=== PATIENT | male | born 1985 | race Two or more races ===

== ENCOUNTER 2017-10-03 20:46 | Emergency (ER) | payer MEDICAID ==
[~2017-10-03] VITALS: Ht 185.4 cm; Wt 74.8 kg
[2017-10-03] MEDS ORDERED: Naloxone 1mg/ml 2ml ONE (21:25)
[2017-10-03] MEDS ORDERED: Naloxone 1mg/ml 2ml IVP ONE ×2 (21:30→22:00)
[2017-10-03 21:35] LABS: BASOPHILS % (AUTO) 1.2 % (0.0-2.0); EOSINOPHILS % (AUTO) 1.4 % (0.0-3.0); HEMATOCRIT 44.7 % (42.0-52.0); HEMOGLOBIN 14.7 G/DL (14.2-18.0); LYMPHOCYTES % (AUTO) 21.2 % (20.0-45.0); MEAN CORPUSCULAR VOLUME 91 FL (80-99); MONOCYTES % (AUTO) 8.9 % (1.0-10.0); NEUTROPHILS % (AUTO) 67.3 % (45.0-75.0); PLATELET COUNT 276 K/UL (150-450); RED BLOOD COUNT 4.93 M/UL (4.70-6.10); RED CELL DISTRIBUTION WIDTH 12.6 % (11.6-14.8); WHITE BLOOD COUNT 11.4 K/UL (4.8-10.8)
[2017-10-03 21:44] LABS: ANION GAP 8 mmol/L (5-15); BLOOD UREA NITROGEN 20 mg/dL (7-18); CALCIUM 9.5 MG/DL (8.5-10.1); CARBON DIOXIDE 26 MMOL/L (21-32); CHLORIDE 110 MMOL/L (98-107); CREATININE 1.5 MG/DL (0.55-1.30); POTASSIUM 4.5 MMOL/L (3.5-5.1); SODIUM 144 MMOL/L (136-145)
[2017-10-03 21:53] LABS: APPEARANCE,URINE CLEAR; BILIRUBIN, URINE NEGATIVE (NEGATIVE); GLUCOSE, URINE (UA) NEGATIVE (NEGATIVE); KETONES,URINE 1+ (NEGATIVE); LEUKOCYTE ESTERASE ,URINE 1+ (NEGATIVE); NITRITE,URINE NEGATIVE (NEGATIVE); PH,URINE 5 (4.5-8.0); PROTEIN,URINE 1+ (NEGATIVE); UROBILINOGEN,URINE 4 MG/DL (0.0-1.0)
[2017-10-03 21:54] LABS: COLOR,URINE YELLOW
[2017-10-03 21:57] LABS: ALANINE AMINOTRANSFERASE 32 U/L (12-78); ALBUMIN 4.1 G/DL (3.4-5.0); ALBUMIN/GLOBULIN RATIO 1.1 (1.0-2.7); ALKALINE PHOSPHATASE 63 U/L (46-116); ASPARTATE AMINO TRANSFERASE 17 U/L (15-37); BILIRUBIN,TOTAL 0.2 MG/DL (0.2-1.0); CKMB 3.1 NG/ML (0.0-3.6); CREATINE KINASE 174 U/L (26-308)
--- NOTE | 2017-10-03 21:59 | Emergency Room Report ---
History of Present Illness General Chief Complaint: Behavioral Complaint Source: Patient Present Illness HPI Patient is a 32-year-old male who presented after increased altered level consciousness. Patient was brought in by EMS patient was noted to be acting erratically. The patient had prior history of HIV. He was noted to be awake and alert by paramedics and subsequently became less responsive. He was noted to have adequate blood sugar. He had had not been vomiting. History is limited by patient's mental status. Allergies: Coded Allergies: No Known Allergies (Unverified , 10/03/17) Patient History Reviewed Nursing Documentation: PMH: Agreed; PSxH: Agreed Nursing Documentation-PM Past Medical History: No History, Except For Review of Systems All Other Systems: negative except mentioned in HPI Physical Exam Vital Signs Date Time Temp Pulse Resp B/P (MAP) Pulse Ox O2 Delivery O2 Flow Rate FiO2 10/03/17 20:39 116 16 140/90 99 Room Air Sp02 EP Interpretation: reviewed, normal General Appearance: alert/responsive, no apparent distress, GCS 15, non-toxic Head: atraumatic Eyes: normal eye exam, lids + conjunctiva normal, other - pinpint ENT: hearing intact, no angioedema Neck: supple/symm/no masses, no meningismus Respiratory: effort normal, no wheezing, chest symmetrical Cardiovascular: regular rate, rhythm, no edema Cardiovascular #2: 2+ carotid (R), 2+ carotid (L), 2+ dorsalis pedis (R), 2+ dorsalis pedis (L) Gastrointestinal: non-tender, no mass, non-distended, no rebound/guarding, normal bowel sounds Musculoskeletal: gait & station normal, strength & tone normal, normal ROM, non -tender Neurologic: normal inspection, CN II-XII intact, oriented x3, sensory intact, normal speech Skin: no rash, well hydrated Lymphatic: normal inspection Medical Decision Making EKG Diagnostic Results Rate: normal - 80 Rhythm: NSR ST Segments: no acute changes Last Vital Signs Date Time Temp Pulse Resp B/P (MAP) Pulse Ox O2 Delivery O2 Flow Rate FiO2 10/03/17 20:39 116 16 140/90 99 Room Air Jay Carlos MD Oct 03, 2017 21:59
[2017-10-03 22:00] VITALS: BP 133/97
[2017-10-03 23:01] VITALS: BP 130/90
[2017-10-04 00:16] VITALS: BP 122/80
[2017-10-04 00:19] VITALS: BP 122/80
--- NOTE | 2017-10-04 11:10 | Diagnostic Imaging Report ---
Indication: Shortness of breath Technique: One view of the chest Comparison: none Findings: Lungs and pleural spaces are clear. Heart size is normal Impression: No acute process This agrees with the preliminary interpretation provided by the emergency room physician
--- NOTE | 2017-10-04 13:32 | Cardiology Report ---
APPROVED REPORT EKG Measurement Heart [id number] Normal sinus rhythm Septal infarct, age undetermined Possible Lateral infarct, age undetermined Abnormal ECG
== END 2017-10-04 00:20 | disposition home or self-care (01) ==
LOC: EDBD 20:46 → EMR 22:32
DX: R41.82 Altered mental status, unspecified (principal); B20 Human immunodeficiency virus [HIV] disease; R06.02 Shortness of breath
CPT/HCPCS: 36415; 71045; 80053; 80307; 80329; 81003; 82550; 82553; 83605; 84484; 85025; 87040; 93005; 96361; 96374; 96375; 99284; J2310

== ENCOUNTER 2019-03-02 11:52 | Emergency (ER) | payer MEDICAID, OTHER ==
[~2019-03-02] VITALS: Ht 185.4 cm; Wt 72.6 kg
--- NOTE | 2019-03-02 12:30 | NUR ---
ED Nurse Note: Patient walked into ED from home c/o diarrhea since 02/24/19. patient c/o periumbilical stomachache intermittently. denies any pain at this time. patient reports hx of HIV.
[2019-03-02 13:27] VITALS: BP 121/72
[2019-03-02 13:28] LABS: EOSINOPHILS % (AUTO) 3.3 % (0.0-3.0); HEMATOCRIT 48.1 % (42.0-52.0); HEMOGLOBIN 15.9 G/DL (14.2-18.0); LYMPHOCYTES % (AUTO) 39.8 % (20.0-45.0); MEAN CORPUSCULAR VOLUME 90 FL (80-99); MONOCYTES % (AUTO) 14.6 % (1.0-10.0); NEUTROPHILS % (AUTO) 41.4 % (45.0-75.0); PLATELET COUNT 320 K/UL (150-450); RED BLOOD COUNT 5.37 M/UL (4.70-6.10); RED CELL DISTRIBUTION WIDTH 12.1 % (11.6-14.8); WHITE BLOOD COUNT 7.9 K/UL (4.8-10.8)
[2019-03-02 13:31] LABS: APPEARANCE,URINE CLEAR; BILIRUBIN, URINE NEGATIVE (NEGATIVE); GLUCOSE, URINE (UA) NEGATIVE (NEGATIVE); KETONES,URINE NEGATIVE (NEGATIVE); LEUKOCYTE ESTERASE ,URINE NEGATIVE (NEGATIVE); NITRITE,URINE NEGATIVE (NEGATIVE); PH,URINE 5 (4.5-8.0); PROTEIN,URINE NEGATIVE (NEGATIVE); UROBILINOGEN,URINE NORMAL MG/DL (0.0-1.0)
[2019-03-02 13:40] LABS: COLOR,URINE YELLOW
[2019-03-02 13:41] LABS: ANION GAP 5 mmol/L (5-15); BLOOD UREA NITROGEN 18 mg/dL (7-18); CALCIUM 8.6 MG/DL (8.5-10.1); CARBON DIOXIDE 32 MMOL/L (21-32); CHLORIDE 101 MMOL/L (98-107); CREATININE 1.1 MG/DL (0.55-1.30); POTASSIUM 4.5 MMOL/L (3.5-5.1); SODIUM 138 MMOL/L (136-145)
[2019-03-02 13:45] LABS: ALANINE AMINOTRANSFERASE 31 U/L (12-78); ALBUMIN 3.5 G/DL (3.4-5.0); ALBUMIN/GLOBULIN RATIO 0.8 (1.0-2.7); ALKALINE PHOSPHATASE 56 U/L (46-116); ASPARTATE AMINO TRANSFERASE 18 U/L (15-37); BILIRUBIN,TOTAL 0.2 MG/DL (0.2-1.0)
[2019-03-02] MEDS ORDERED: Dicyclomine HCl 10mg/5ml oral soln ORAL ONE (13:45)
[2019-03-02] MEDS ORDERED: Lidocaine 2% Visc 15ml soln ORAL ONE (13:45)
[2019-03-02] MEDS ORDERED: Mylanta II UD 30ml ORAL ONE (13:45)
[2019-03-02] MEDS ORDERED: RANITIDINE HCL150 MG ORAL (14:31)
[2019-03-02] MEDS ORDERED: DICYCLOMINE HCL10 MG ORAL (14:31)
[2019-03-02 14:36] VITALS: BP 124/78
[2019-03-02 14:37] VITALS: BP 124/78
--- NOTE | 2019-03-02 14:37 | NUR ---
ER DISCHARGE NOTE: Patient is cleared to be discharged per ERMD DR RICARDO , pt is aox4, on room air, with stable vital signs. pt was given dc and prescription instructions, pt was able to verbalize understanding, pt id band and iv site removed without complications. pt is able to ambulate with steady gait. pt took all belongings.
--- NOTE | 2019-03-02 15:22 | Emergency Room Report ---
History of Present Illness General Chief Complaint: Diarrhea Source: Patient Present Illness HPI 33-year-old male presents ED for evaluation. Presents with diarrhea and abdominal pain x5 days. Pain is cramping, 6 out of 10, nonradiating. Feels multiple episodes of watery loose stools. Denies vomiting. Denies fevers or chills. Denies recent travel or recent antibiotic use. No other aggravating relieving factors. Denies any other associated symptoms Allergies: Coded Allergies: No Known Allergies (Unverified , 10/03/17) Patient History Past Medical History: HIV Past Surgical History: none Pertinent Family History: none Social History: Denies: smoking, alcohol use, drug use Immunizations: UTD Reviewed Nursing Documentation: PMH: Agreed; PSxH: Agreed Nursing Documentation-PMH Past Medical History: No Stated History Review of Systems All Other Systems: negative except mentioned in HPI Physical Exam Vital Signs Date Time Temp Pulse Resp B/P (MAP) Pulse Ox O2 Delivery O2 Flow Rate FiO2 03/02/19 11:54 98.1 118 20 127/78 (94) 96 Room Air Sp02 EP Interpretation: reviewed, normal General Appearance: no apparent distress, alert, GCS 15, non-toxic Head: normocephalic, atraumatic Eyes: bilateral eye normal inspection, bilateral eye PERRL ENT: hearing grossly normal, normal pharynx, no angioedema, normal voice Neck: full range of motion, supple/symm/no masses Respiratory: chest non-tender, lungs clear, normal breath sounds, speaking full sentences Cardiovascular #1: regular rate, rhythm, no edema Cardiovascular #2: 2+ carotid (R), 2+ carotid (L), 2+ radial (R), 2+ radial (L) , 2+ dorsalis pedis (R), 2+ dorsalis pedis (L) Gastrointestinal: normal bowel sounds, non tender, soft, non-distended, no guarding, no rebound Rectal: deferred Genitourinary: normal inspection, no CVA tenderness Musculoskeletal: back normal, normal range of motion, gait/station normal, non- tender Neurologic: alert, motor strength/tone normal, oriented x3, sensory intact, responsive, speech normal Psychiatric: judgement/insight normal, memory normal, mood/affect normal, no suicidal/homicidal ideation Reflexes: 3+ bicep (R), 3+ bicep (L), 3+ tricep (R), 3+ tricep (L), 3+ knee (R) , 3+ knee (L) Lymphatic: no adenopathy Medical Decision Making Diagnostic Impression: Primary Impression: Gastroenteritis ER Course Hospital Course 33-year-old M presents to ED with cramping abdominal pain with diarrhea differential diagnosis: gastritis, SBO, cholecystits, gastroenteritis Clinical course Patient placed on stretcher. On pvc monitor. After initial history and physical I ordered labs, IV fluids, GI cocktail and Zantac Labs - no leukocytosis, electrolytes ok, LFTs normal On reassessment patient feels better. Discussed findings with patient. Course is viral and self-limited. Safe for discharge for close outpatient follow-up. I will provide referrals I feel this is a highly complex case requiring extensive working including EKG/ Rhythm strip, Xray/CT/US, Blood/urine lab work, repeat exams while in ED, and administration of strong opiates/narcotics for pain control, admission to hospital or close patient follow up. Diagnosis - gastroenteritis Stable and discharged to home with prescriptions for Zantac,bentyl. Followup with PMD. Return to ED if symptoms recur or worsen Labs Test 03/02/19 13:13 White Blood Count 7.9 K/UL (4.8-10.8) Red Blood Count 5.37 M/UL (4.70-6.10) Hemoglobin 15.9 G/DL (14.2-18.0) Hematocrit 48.1 % (42.0-52.0) Mean Corpuscular Volume 90 FL (80-99) Mean Corpuscular Hemoglobin 29.6 PG (27.0-31.0) Mean Corpuscular Hemoglobin Concent 33.1 G/DL (32.0-36.0) Red Cell Distribution Width 12.1 % (11.6-14.8) Platelet Count 320 K/UL (150-450) Mean Platelet Volume 5.4 FL (6.5-10.1) Neutrophils (%) (Auto) 41.4 % (45.0-75.0) Lymphocytes (%) (Auto) 39.8 % (20.0-45.0) Monocytes (%) (Auto) 14.6 % (1.0-10.0) Eosinophils (%) (Auto) 3.3 % (0.0-3.0) Basophils (%) (Auto) 1.0 % (0.0-2.0) Urine Color Yellow Urine Appearance Clear Urine pH 5 (4.5-8.0) Urine Specific [place] 1.020 (1.005-1.035) Urine Protein Negative (NEGATIVE) Urine Glucose (UA) Negative (NEGATIVE) Urine Ketones Negative (NEGATIVE) Urine Blood Negative (NEGATIVE) Urine Nitrite Negative (NEGATIVE) Urine Bilirubin Negative (NEGATIVE) Urine Urobilinogen Normal MG/DL (0.0-1.0) Urine Leukocyte Esterase Negative (NEGATIVE) Sodium Level 138 MMOL/L (136-145) Potassium Level 4.5 MMOL/L (3.5-5.1) Chloride Level 101 MMOL/L (98-107) Carbon Dioxide Level 32 MMOL/L (21-32) Anion Gap 5 mmol/L (5-15) Blood Urea Nitrogen 18 mg/dL (7-18) Creatinine 1.1 MG/DL (0.55-1.30) Estimat Glomerular Filtration Rate > 60 mL/min (>60) Glucose Level 105 MG/DL (74-106) Calcium Level 8.6 MG/DL (8.5-10.1) Total Bilirubin 0.2 MG/DL (0.2-1.0) Aspartate Amino Transf (AST/SGOT) 18 U/L (15-37) Alanine Aminotransferase (ALT/SGPT) 31 U/L (12-78) Alkaline Phosphatase 56 U/L (46-116) Total Protein 7.8 G/DL (6.4-8.2) Albumin 3.5 G/DL (3.4-5.0) Globulin 4.3 g/dL Albumin/Globulin Ratio 0.8 (1.0-2.7) Lipase 83 U/L (73-393) Last Vital Signs Date Time Temp Pulse Resp B/P (MAP) Pulse Ox O2 Delivery O2 Flow Rate FiO2 03/02/19 14:37 98.1 97 17 124/78 99 Room Air Status: improved Disposition: HOME, SELF-CARE Condition: Stable Scripts Dicyclomine Hcl* (DICYCLOMINE HCL*) 10 Mg Capsule 10 MG ORAL QID, #20 CAP Prov: Benoit Fields MD 03/02/19 Ranitidine Hcl* (ZANTAC*) 150 Mg Tablet 150 MG ORAL TWICE A DAY, #30 TAB Prov: Benoit Fields MD 03/02/19 Referrals: [facility] Patient Instructions: Viral Gastroenteritis, Adult Benoit Fields MD Mar 02, 2019 15:22
== END 2019-03-02 14:38 | disposition home or self-care (01) ==
LOC: EMR 14:23
DX: K52.9 Noninfective gastroenteritis and colitis, unspecified (principal); B20 Human immunodeficiency virus [HIV] disease
CPT/HCPCS: 36415; 80053; 81003; 83690; 85025; 96361; 96374; J7030; S0028; Z7502; 99284

== ENCOUNTER 2019-10-22 14:51 | Emergency (ER) | payer OTHER ==
[~2019-10-22] VITALS: Ht 185.4 cm; Wt 74.8 kg
[~2019-10-22 14:51] MED LIST: DICYCLOMINE HCL10 MG ORAL; RANITIDINE HCL150 MG ORAL
--- NOTE | 2019-10-22 15:00 | NUR ---
ED Nurse Note: Patient walked into ED c/o small open sore on left palm of hand, approx 2 cm wide. Patient states it looked like a callous and he popped it with a pin. Now pain 5/10, tender, has hurt x1 week and radiates down left forearm. Patient AxO x 4, sitting in chair, calm, no facial grimacing.
[2019-10-22 15:05] VITALS: BP 122/86
--- NOTE | 2019-10-22 15:10 | NUR ---
ED Nurse Note: ERPA at bedside
[2019-10-22] MEDS ORDERED: Tetanus/Diptheria/Pertussis IM ONE (15:15)
[2019-10-22] MEDS ORDERED: Bacitracin Oint UD TOPIC ONE (15:15)
--- NOTE | 2019-10-22 15:24 | Emergency Room Report ---
History of Present Illness General Chief Complaint: Skin Rash/Abscess Source: Patient Present Illness HPI 34-year-old male presents to the emergency department complaining of 8 out of 10 severity pain and tenderness to open wound on the left palm with progressive erythema x1 week. Patient reports initially appeared as like a small pimple which he states he popped. Patient reports that he began having erythema that began spreading up his forearm. Patient denies fevers or chills. He denies history of immune compromise. He denies trauma or fall. Patient denies significant past medical history. Patient is not sure when his last tetanus vaccination was. Denies numbness tingling or loss of sensation or gross motor movements of the extremities, incontinence of bowel or bladder. Denies CP, Palpitations, LOC, AMS, dizziness, Changes in Vision, weakness or a sudden severe headache. Allergies: Coded Allergies: No Known Allergies (Unverified , 10/03/17) COVID-19 Screening Contact w/high risk pt: No Experienced COVID-19 symptoms?: No COVID-19 Testing performed MEDIA CLERK: No Patient History Past Medical History: see triage record Past Surgical History: none Pertinent Family History: none Reviewed Nursing Documentation: PMH: Agreed; PSxH: Agreed Nursing Documentation-PMH Past Medical History: No Stated History Review of Systems All Other Systems: negative except mentioned in HPI Physical Exam Vital Signs Date Time Temp Pulse Resp B/P (MAP) Pulse Ox O2 Delivery O2 Flow Rate FiO2 10/22/19 14:53 98.2 103 15 122/86 (98) 99 Room Air Sp02 EP Interpretation: reviewed, normal General Appearance: no apparent distress, alert, GCS 15, non-toxic Head: normocephalic, atraumatic Eyes: bilateral eye normal inspection, bilateral eye PERRL ENT: hearing grossly normal, normal voice Neck: full range of motion Respiratory: lungs clear, normal breath sounds, speaking full sentences Cardiovascular #1: regular rate, rhythm, normal capillary refill, tachycardia Musculoskeletal: normal range of motion, gait/station normal, non-tender Neurologic: alert, motor strength/tone normal, oriented x3, sensory intact, responsive, speech normal Psychiatric: judgement/insight normal Skin: other - open wound noted that is 0.4cm in diameter on the left palm with surrounding erythema and streaking up towards the left forearm. NVI . NO blisters or vesicles. Lymphatic: no adenopathy Medical Decision Making PA Attestation Dr. White Is my supervising Physician whom patient management has been discussed with. Diagnostic Impression: Primary Impression: Cellulitis Qualified Codes: L03.114 - Cellulitis of left upper limb Additional Impression: Lymphangitis of upper extremity ER Course 34-year-old male presents to the emergency department complaining of 8 out of 10 severity pain and tenderness to open wound on the left palm with progressive erythema x1 week. Patient reports initially appeared as like a small pimple which he states he popped. Patient reports that he began having erythema that began spreading up his forearm. Patient denies fevers or chills. He denies history of immune compromise. He denies trauma or fall. Patient denies significant past medical history. Patient is not sure when his last tetanus vaccination was. Denies numbness tingling or loss of sensation or gross motor movements of the extremities, incontinence of bowel or bladder. Denies CP, Palpitations, LOC, AMS, dizziness, Changes in Vision, weakness or a sudden severe headache. Ddx considered but are not limited to cellulitis, Necrotizing fasciitis, allergic reaction, burn, dermatitis, fracture, d/L, gout, SJS, drug eruption/ side effect, MRSA, symphilis, HFM just to name a few. Vital signs: are WNL, pt. is afebrile H&PE are most consistent with cellulitis with lymphangitis of the left hand and forearm. open wound noted that is 0.4cm in diameter on the left palm with surrounding erythema and streaking up towards the left forearm. NVI ORDERS: none required at this time, the diagnosis is clinical ED INTERVENTIONS: -Tetanus vaccination is administered -Wound care + bacitracin by RN - Left volar hand and wrist Splint applied by conservation technician. Pt. remains neurovascularly intact. -- Left arm Sling applied by conservation technician. Pt. remains neurovascularly intact. DISCHARGE: At this time pt. is stable for d/c to home. Will provide printed patient care instructions, and any necessary prescriptions. Care plan and follow up instructions have been discussed with the patient prior to discharge. Last Vital Signs Date Time Temp Pulse Resp B/P (MAP) Pulse Ox O2 Delivery O2 Flow Rate FiO2 10/22/19 15:05 98.2 82 16 122/86 99 Room Air Disposition: HOME, SELF-CARE Condition: Stable Scripts Mupirocin* (MUPIROCIN*) 22 Gm Oint...g. 1 APPLIC TOPIC THREE TIMES A DAY, #22 GM Prov: Skyla Persaud 10/22/19 Doxycycline Hyclate* (VIBRAMYCIN*) 100 Mg Capsule 100 MG ORAL EVERY 12 HOURS for 7 Days, #14 CAP 0 Refills Prov: Skyla Persaud 10/22/19 Referrals: [facility]ERR[facility] (PCP) Patient Instructions: Cellulitis, [id number], Rash Additional Instructions: Take medications as directed. Follow up with a Primary Care Provider in 3-5 days, even if your symptoms have resolved. --Please review list of primary care clinics, if you do not already have a primary care provider Return sooner to ED if new symptoms occur, or current symptoms become worse. - Please note that this Emergency Department Report was dictated using zeroboundcounseling aide technology software, occasionally this can lead to erroneous entry secondary to interpretation by the dictation equipment. Skyla Persaud Oct 22, 2019 15:24
[2019-10-22] MEDS ORDERED: VIBRAMYCIN100 MG ORAL (15:27)
[2019-10-22] MEDS ORDERED: MUPIROCIN22 GM TOPIC (15:27)
[2019-10-22 15:35] VITALS: BP 122/86
--- NOTE | 2019-10-22 15:35 | NUR ---
ER DISCHARGE NOTE: Patient is cleared to be discharged per ERMD, pt is aox4, on room air, with stable vital signs. Bacitracin applied to wound, and Volar splint placed to left hand/wrist by recycling technician. pt was given dc and prescription instructions, pt was able to verbalize understanding, patient ID band removed pt is able to ambulate with steady gait. pt took all belongings.
== END 2019-10-22 15:35 | disposition home or self-care (01) ==
LOC: EMR 15:08
DX: L03.114 Cellulitis of left upper limb (principal)
CPT/HCPCS: 29125; 90471; 90715; Z7502; 99283